=== PATIENT | female | born 1975 | race Caucasian/White ===

== ENCOUNTER 2017-03-16 00:57 | Observation (INO) | payer OTHER ==
[~2017-03-16] VITALS: Ht 162.6 cm; Wt 86.2 kg
[~2017-03-16 00:57] MED LIST: PREN1TAB47 PO; RANI150T13 PO; [UNRECOGNIZED DRUG - CODE] PO
[2017-03-16] MEDS ORDERED: Lactated Ringer's 1,000 ML IV SCH (08:07)
[2017-03-16] MEDS ORDERED: Lactated Ringer's 1,000 ML IV PRN (08:07)
[2017-03-16] MEDS ORDERED: Oxytocin 30 Units/500 mL LR 30 UNITS in IV Premix 1 EACH IV PRN (08:10)
[2017-03-16] MEDS ORDERED: Sodium Chloride LOK Flush 10 mL Syringe IVFLUSH PRN (08:10)
[2017-03-16] MEDS ORDERED: Methylergonovine 0.2 mg/mL Inj IM PRN (08:10)
[2017-03-16] MEDS ORDERED: fentaNYL-PF 50 mCg/mL 2 mL Inj IVPUSH PRN (08:10)
[2017-03-16] MEDS ORDERED: Ondansetron 2 mg/mL 2 mL Inj IVPUSH PRN (08:10)
[2017-03-16] MEDS ORDERED: Hemorrhage Kit, Post Partum XX ONE (08:10)
[2017-03-16] MEDS ORDERED: Oxytocin 10 Unit/mL Inj IM PRN (08:10)
[2017-03-16] MEDS ORDERED: Carboprost 250 mCg/mL Inj IM PRN (08:10)
[2017-03-16 08:17] LABS: Mean Corpuscular Hemoglobin 30.2 pg (27.0-35.0); Mean Corpuscular Volume 91.6 fL (81-100)
--- NOTE | 2017-03-16 13:26 | PCM.HPOB ---
Subjective Date of Service: Mar 16, 2017 Referring Provider: Admitting Physician: Nicholas Tom MD Primary Care Physician: Nicholas Tom MD Attending Physician: Nicholas Tom MD Chief Complaint Here for scheduled induction History of Present History of Present Illness 42 yo at 39 w3d EDC 03/20/2017 by 12 wk US Here for elective induction of labor for AMA , GDM A1, history of preeclampsia in previous . No complaint today. Good movement, irregular contractions. No loss of fluid. Complicated by: 1. Advanced maternal age, abn Quad screen Elevated DS risk. Declined amnio. 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 2. GDM diet controlled, (based on elevated 1 hr, declined 3 hrs and h/o GDM) on weekly NST. Fasting's 90 or less, 1 HR PP WNL except for 2 readings of 136. 3. History of Pre-Eclampsia with last - induced at 34 weeks. Baseline Preeclampsia labs at 21 weeks WNL, P/C ratio 0.13. 4. Smoker. 5. Obesity BMI 32 6. H/O hemorrhage, use additional prophylactic medication along with oxytocin. &. Anemia in Hct 31 at 21 weeks. rpt Hct today. 8. Pyelonephritis, negative KATERIN. on suppression. Rpt culture negative. 9. S<D growth US at 35 weeks, 1 day: Estimated Weight (EFW): 2472 g. EFW percentile rank: 32 % 10. GERD. 11. Chronic headache. 12. Reactive air way disease/possible asthma 13. Constipation. Past Medical History Obstetrical History: First : Outcome Live Delivery Date: 09/01/1999 Mode of Delivery: vaginal Anesthesia: Epidural Birthweight: 6lb 11oz Length of : 42 weeks Complications: none Child's Name: Armida Father:Bailey Place [facility] Delivery: [facility] Second : outcome Miscarriage D&C Third : Outcome Live Delivery Date: 11/12/2008 Mode of Delivery: vaginal Anesthesia: Epidural Birthweight: 6lb 6 Length of : 42 weeks Complications: PP hemorrhage, GDM , prolonged ROM. Child's Name: Lisa Father: Bailey Place of Delivery: [facility] Fourth : Outcome Live Delivery Date: 09/25/2015 Mode of Delivery: vaginal Anesthesia: Epidural Birthweight:7lb Length of : 34 weeks Complications: Preeclampsia, GDM. Child's Name: Valeriano Father: Bailey Place of Delivery: [facility] Gynecologic History: * Menarche: 16 yrs old * Duration: 4 Days * No History of STI * History of endometriosis Medical History: * Tobacco use * Reactive airway disease * Vaginal yeast infection * Constipation * GERD (gastroesophageal reflux disease) * Chronic headache * Deaf left Hearing * See HPI. Surgical History: Cholecystectomy Diagnostic laparoscopy Hx Tobacco Use: Yes Hx Alcohol Use: No Hx Substance Use: No Review of Systems ROS 11 points ROS is negative except for the items in HPI Medications Home medications * Tums (500MG Tablet Chewable * Ventolin HFA 108 (90 Base)MCG/ACT, 2 (two) Puff Puff every 2-4 hours as needed * Keflex 250MG, 1 (one) Capsule at bedtime * [facility] Vitamin C 250MG, 1 (one) Tablet Tablet twice a day * Ferrous Sulfate 325 (65 Fe)MG, 1 (one) Tablet Tablet twice a day * /Folic Acid, 1 (one) Tablet Tablet daily Allergy Coded Allergies: morphine (Verified Allergy, Intermediate, ITCHING, 04/14/09) oxycodone (Verified Adverse Reaction, Mild, nausea/vomiting, 03/16/17) Exam Vital Signs VSS Exam Category 1 tracing Constitutional: Well-developed Lungs: Clear to Auscultation Heart: Regular Rate/Rhythm, Normal S1, Normal S2 Abdomen: Gravid Extremities: Pulses Palpable x4 Neurological/Psychiatric: Alert, Oriented X3 Neuro: Reflexes 2+ Labs/Diagnostics Lab/Diagnostic Information Laboratory Tests 72 Hours Test 03/16/17 07:40 White Blood Count 13.0th/mm3 (3.8-10.1) Red Blood Count 3.71mil/mm3 (3.90-5.20) Hemoglobin 11.2g/dL (12.0-15.6) Hematocrit 34.0% (35.0-46.0) Mean Corpuscular Volume 91.6fL (81-100) Mean Corpuscular Hemoglobin 30.2pg (27.0-35.0) Mean Corpuscular Hemoglobin Concent 32.9% (32.0-37.0) Red Cell Distribution Width 13.8% (12.3-15.4) Platelet Count 197bil/L (150-400) Additional Information Labs: A pos VDRL NR, Rubella immune, HepBsAg neg, HIV neg, GC/CT neg, quad screen elevated 1 hr GTT 146 at 10 weeks. 3 hrs WNL. 1 hr GTT 186 at third trimester , declined 3 hrs GTT. GBS negative 02/22/17 OB Intrapartum Assessment/Plan Assessment 42 yo at 39 w3d EDC 03/20/2017 by 12 wk US Here for elective induction of labor for AMA , GDM A1, history of preeclampsia in previous . Complicated by: 1. Advanced maternal age, abn Quad screen Elevated DS risk. Declined amnio. 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 2. GDM diet controlled, (based on elevated 1 hr, declined 3 hrs and h/o GDM) on weekly NST. Fasting's 90 or less, 1 HR PP WNL except for 2 readings of 136. 3. History of Pre-Eclampsia with last - induced at 34 weeks. Baseline Preeclampsia labs at 21 weeks WNL, P/C ratio 0.13. 4. Smoker. 5. Obesity BMI 32 6. H/O hemorrhage, use additional prophylactic medication along with oxytocin. &. Anemia in Hct 31 at 21 weeks. rpt Hct today. 8. Pyelonephritis, negative KATERIN. on suppression. Rpt culture negative. 9. S<D growth US at 35 weeks, 1 day: Estimated Weight (EFW): 2472 g. EFW percentile rank: 32 % 10. GERD. 11. Chronic headache. 12. Reactive air way disease/possible asthma 13. Constipation. Pain Management: /B/A of induction of labor discussed with patient in details. Patient desires to proceed with induction as scheduled today. Cervix 4/60%/-2/posterior/soft Casanova score 7 will start with Pitocin Nicholas Tom MD Mar 16, 2017 13:26 Nicholas Tom MD Mar 16, 2017 13:26
[2017-03-16] MEDS ORDERED: Albuterol 2.5 mg/3 mL Inhalation Solution NEB PRN (16:00)
[2017-03-17 09:43] VITALS: BP 119/58; PULSE 76; RESP 14
--- NOTE | 2017-03-18 00:03 | PCM.DC.OB ---
Obstetrical Discharge Summary Date of Service Mar 17, 2017 Date of hospital admission Mar 16, 2017 at 06:59 Date of Discharge: Mar 17, 2017 Providers Admitting Physician: Nicholas Tom MD Primary Care Physician: Nicholas Tom MD Attending Physician: Nicholas Tom MD Brief History and Physical: 42 yo at 39 w3d EDC 03/20/2017 by 12 wk US Here for elective induction of labor for AMA , GDM A1, history of preeclampsia in previous . No complaint today. Good movement, irregular contractions. No loss of fluid. Induction attempted with Pitocin then with Cervidil with no significant change. Offered to continue with induction vs rescheduling induction to 03/23/17 (at 40w5) Patient desires discharge and to reschedule induction. NST scheduled at the office 03/20/17 and induction on 03/23/17 and possibly 03/21/17 if bed become available. Complicated by: 1. Advanced maternal age, abn Quad screen Elevated DS risk. Declined amnio. 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 2. GDM diet controlled, (based on elevated 1 hr, declined 3 hrs and h/o GDM) on weekly NST. Fasting's 90 or less, 1 HR PP WNL except for 2 readings of 136. 3. History of Pre-Eclampsia with last - induced at 34 weeks. Baseline Preeclampsia labs at 21 weeks WNL, P/C ratio 0.13. 4. Smoker. 5. Obesity BMI 32 6. H/O hemorrhage, use additional prophylactic medication along with oxytocin. &. Anemia in Hct 31 at 21 weeks. rpt Hct today. 8. Pyelonephritis, negative KATERIN. on suppression. Rpt culture negative. 9. S<D growth US at 35 weeks, 1 day: Estimated Weight (EFW): 2472 g. EFW percentile rank: 32 % 10. GERD. 11. Chronic headache. 12. Reactive air way disease/possible asthma 13. Constipation. Discharge condition: stable. Disposition: home. discharge instruction given. Ferrous Sulfate-Expunged Drug, Do Not Renew! (Ferrous Sulfate-Expunged Drug, Do Not Renew!) 220 Mg/5 Ml Elixir 220 MG PO DAILY (Reported) Vit/Fe Fumarate/Fa-Expunged Drug, Do (-Expunged Drug, Do Not Renew!) 1 Tab Tablet 1 TAB PO DAILY (Reported) Ranitidine Hcl (Zantac) 150 Mg Tablet 150 MG PO BID (Reported) Nicholas Tom MD Mar 18, 2017 00:03
== END 2017-03-17 09:55 | disposition home or self-care (01) ==
LOC: FBC 06:59 → INTOOBSV 06:59
PROVIDERS: ADMIT Obstetrics & Gynecology; ATTEND Obstetrics & Gynecology
DX: O09.523 Supervision of elderly multigravida, third trimester (principal); O24.410 Gestational diabetes mellitus in pregnancy, diet controlled; Z3A.39 39 weeks gestation of pregnancy; O99.333 Smoking (tobacco) complicating pregnancy, third trimester; F17.210 Nicotine dependence, cigarettes, uncomplicated; O99.213 Obesity complicating pregnancy, third trimester; E66.9 Obesity, unspecified; Z68.32 Body mass index [BMI] 32.0-32.9, adult; O99.013 Anemia complicating pregnancy, third trimester; D64.9 Anemia, unspecified; K21.9 Gastro-esophageal reflux disease without esophagitis; J45.909 Unspecified asthma, uncomplicated; K59.00 Constipation, unspecified